=== PATIENT | female | born 1965 | race Caucasian/White ===

== ENCOUNTER 2016-11-01 00:59 | Emergency (ER) | payer BC ==
[~2016-11-01 00:59] MED LIST changes: -NORCO 325 MG-51 TA1 PO; -ZOFRAN ODT4 MG PO
[2016-11-01] MEDS ORDERED: ZOFRAN ODT4 MG PO (02:06)
[2016-11-01] MEDS ORDERED: NORCO 325 MG-51 TA1 PO (02:06)
== END 2016-11-01 02:27 | disposition home or self-care (01) ==
LOC: ED 00:59
DX: R10.11 Right upper quadrant pain (principal)
CPT/HCPCS: J2270; J2405

== ENCOUNTER → 2016-11-01 | Outpatient (CLI) | payer BC ==
[~2016-11-01] MED LIST: DIGESTIVE ENZY1 EACH PO; NORCO 325 MG-51 TA1 PO; PEPCID 20MG TAB20 MG PO; SYNTHROID25 MCG PO; ZOFRAN ODT4 MG PO; ZOLOFT 100MG100 MG PO; [UNRECOGNIZED DRUG - OTHER] PO
== END ==
LOC: RAD 09:46
DX: R10.11 Right upper quadrant pain (principal)